=== PATIENT | male | born 1955 | race Two or more races ===

== ENCOUNTER 2019-04-16 22:38 | Inpatient (IN) | payer BC, OTHER ==
[~2019-04-16] VITALS: Ht 175.3 cm; Wt 86.1 kg
[2019-04-16] MEDS ORDERED: cloNIDine HCL 0.1 MG TAB ONE (22:51)
[2019-04-16] MEDS ORDERED: cloNIDine HCL 0.1 MG TAB PO ONE (23:00)
[2019-04-16 23:23] LABS: Basophils # (auto) 0 uL; Basophils % (auto) 0.2 % (0.0-2.0); Eosinophils # (auto) 0.1 uL; Eosinophils % (auto) 1.2 % (0.0-7.0); Hematocrit 45.1 % (41.0-53.0); Hemoglobin 15.1 g/dL (13.5-17.5); Lymphocytes % (auto) 10.4 % (10.0-50.0); Mean Corpuscular Hgb Conc. 33.5 g/dL (32.0-36.0); Mean Corpuscular Volume 89.7 fL (80.0-100.0); Monocytes % (auto) 10.1 % (0.0-12.0); Neutrophils # (auto) 7.8 uL; Neutrophils % (auto) 78.1 % (37.0-80.0); Platelet Count (auto) 201 10^3/uL (140-450); Red Blood Cells 5.03 10^6/uL (4.5-5.90); Red Cell Distribution Width 13.1 % (11.8-14.3)
[2019-04-16 23:43] LABS: Albumin 3.9 g/dL (3.4-5.0); Calcium 8.7 mg/dL (8.5-10.1); Potassium 3.8 mmol/L (3.5-5.1)
[2019-04-16 23:46] LABS: BUN/Creatinine Ratio 15.2
[2019-04-16 23:48] LABS: Bilirubin, Total 0.8 mg/dL (0.2-1.0); Total Protein 7.5 g/dL (6.4-8.2)
[2019-04-17] MEDS ORDERED: HYDROmorphone HCL 2 MG/ML VL IV ONE ×2 (01:30→05:45)
[2019-04-17] MEDS ORDERED: ONDANSETRON HCL 4 MG/2 ML VIAL IV ONE (01:30)
[2019-04-17 03:21] LABS: Urine Bacteria FEW /hpf (None Seen); Urine Blood 2+ /uL (Negative); Urine Hyaline Cast FEW /lpf (0 - 2); Urine Mucus FEW (None Seen); Urine Specific Gravity 1.032 (1.001-1.035); Urine WBC 3 /hpf (0 - 3)
[2019-04-17] MEDS ORDERED: SODIUM CHLORIDE 0.9% 1,000 ML IV ONE (06:30)
[2019-04-17] MEDS ORDERED: cloNIDine HCL 0.1 MG TAB PO PRN (07:45)
[2019-04-17] MEDS ORDERED: TAMSULOSIN HYDROCHLORIDE 0.4 MG CAP PO ONE (07:45)
[2019-04-17] MEDS ORDERED: SODIUM CHLORIDE 0.9% 500 ML IV ONE (07:45)
[2019-04-17] MEDS ORDERED: KETOROLAC TROMETH 30 MG/ML 1ML VIAL IV PRN (07:45)
[2019-04-17] MEDS ORDERED: ONDANSETRON HCL 4 MG/2 ML VIAL IV PRN (07:45)
[2019-04-17] MEDS ORDERED: HYDROcodone-ACET 5/325MG TAB PO PRN (07:45)
[2019-04-17] MEDS: SODIUM CHLORIDE 0.9% 1,000 ML IV SCH (08:39)
[2019-04-17] MEDS: cefTRIAXone 1GM/50ML D5W 50 ML IV SCH (08:44)
--- NOTE | 2019-04-17 10:56 | NUR ---
MS admit from ER ZOFAI LLOYD admitted to tele/MS after SBAR received. Patient oriented to Kylee Loza, primary RN, unit, room, bed, and unit policies regarding patient care and visiting hours. Patient weighed by bedscale and encouraged to call if they need something. All questions and concerns addressed, patient verbalized understanding. Note: PT IS AWAKE AND ALERT, PT IS COMPLAINING OF LEFT FLANK PAIN 10/10, WILL GIVE PAIN MEDICATION ORDERED.
[2019-04-17] MEDS: FAMOTIDINE 20 MG TAB PO SCH ×2 (11:01→22:23)
--- NOTE | 2019-04-17 11:20 | NUR ---
wound photo taken on right great toe, wound culture done and sent to laboratory.
[2019-04-17 11:28] VITALS: BP 131/77
[2019-04-17 11:31] LABS: INR 0.99 (0.9-1.15); Partial Thromboplastin Time 26.3 sec (23.64-32.05)
--- NOTE | 2019-04-17 12:30 | NUR ---
PT TRANSPORTED TO [facility] PATTERN[facility] VIA BED FOR NEPHROSTOMY TUBE PLACEMENT, PRE-OP CHECKLIST COMPLETED, PT STILL TO SIGN CONSENTS, IV ON LEFT AC PATENT AND FLUSHING.
[2019-04-17] MEDS ORDERED: LIDOCAINE 2%HCL (LOCAL ANESTH.) INJ 20ML MDV ONE (12:34)
[2019-04-17] MEDS ORDERED: fentaNYL CITRATE 100 MCG/2 ML VL ONE (12:39)
[2019-04-17] MEDS ORDERED: IOHEXOL 350 MG/ML 100ML IJ ONE (12:40)
[2019-04-17] MEDS ORDERED: MIDAZOLAM HCL 1MG/1ML-2 ML VIAL ONE (12:40)
--- NOTE | 2019-04-17 13:55 | NUR ---
RECEIVED REPORT FROM CHIOMA ALVAREZ IN [employer]ERIAL CONTROL SUPERVISOR.
--- NOTE | 2019-04-17 14:09 | NUR ---
RECEIVED PT FROM [employer] [facility] VIA BED S/P NEPHROSTOMY TUBE PLACEMENT, PT IS ALERT AND AWAKE, WILL CONTINUE TO MONITOR.
[2019-04-17 17:00] VITALS: BP 124/67
--- NOTE | 2019-04-17 19:00 | NUR ---
drainage output from nephrostomy tube 150mls dark red.
--- NOTE | 2019-04-17 19:20 | NUR ---
Opening shift note Assumed care of patient who is A&Ox4. Currently on RA with no s/s of SOB or distress. Denies pain at this time. Left nephrostomy tube present; dressing is CDI; draining bright red output to gravity. Patient is ambulatory without the use of assistive devices at baseline. Has not ambulated independently post procedure. Instructed to call for assistance with first ambulation; verbalizes understanding. POC discussed with patient and all questions answered. Bed is in low locked position with side rails up x2. Call light is within reach. Will continue care.
[2019-04-17 22:00] VITALS: BP 116/73
[2019-04-18] VITALS (7 sets, daily range): BP systolic 117–145; BP diastolic 52–96
[2019-04-18] MEDS: SODIUM CHLORIDE 0.9% 1,000 ML IV SCH ×3 (01:39→11:35)
[2019-04-18] MEDS: ACETAMINOPHEN 325 MG TAB PO PRN ×2 (01:43→09:12)
--- NOTE | 2019-04-18 04:37 | NUR ---
Nephrostomy tube drainage 225ml dark red drainage emptied from nephrostomy bag. Patient denies pain at this time.
[2019-04-18 05:45] LABS: Basophils # (auto) 0 uL; Basophils % (auto) 0.2 % (0.0-2.0); Eosinophils # (auto) 0.1 uL; Hematocrit 39.7 % (41.0-53.0); Hemoglobin 13.3 g/dL (13.5-17.5); Lymphocytes # (auto) 1.1 uL; Lymphocytes % (auto) 17.6 % (10.0-50.0); Mean Corpuscular Hemoglobin 30.2 pg (28.0-32.0); Mean Corpuscular Hgb Conc. 33.7 g/dL (32.0-36.0); Mean Corpuscular Volume 89.8 fL (80.0-100.0); Monocytes # (auto) 0.8 uL; Neutrophils # (auto) 4.3 uL; Neutrophils % (auto) 68.2 % (37.0-80.0); Nucleated Red Blood Cells % 0.1 %; Platelet Count (auto) 157 10^3/uL (140-450); Red Blood Cells 4.42 10^6/uL (4.5-5.90); Red Cell Distribution Width 13.2 % (11.8-14.3); White Blood Cell 6.3 10^3/uL (4.4-10.8)
[2019-04-18 06:09] LABS: Potassium 3.4 mmol/L (3.5-5.1)
[2019-04-18 06:14] LABS: BUN/Creatinine Ratio 14.8; Calcium 7.9 mg/dL (8.5-10.1)
--- NOTE | 2019-04-18 06:54 | NUR ---
nephrostomy tube drainage 50ml bright red drainage emptied from nephrostomy bag.
[2019-04-18] MEDS: FAMOTIDINE 20 MG TAB PO SCH ×2 (09:06→22:21)
[2019-04-18] MEDS: cefTRIAXone 1GM/50ML D5W 50 ML IV SCH (09:06)
--- NOTE | 2019-04-18 10:19 | NUR ---
PATIENT NEPHROSTOMY TUBE INSERTED ON 04/17/2019. PATENT AND DRAINING
[2019-04-18] MEDS ORDERED: LISI40TA PO (12:15)
[2019-04-18] MEDS ORDERED: HYDR25TA4 PO (12:15)
[2019-04-18] MEDS ORDERED: LEVO75TA6 PO (12:15)
[2019-04-18] MEDS ORDERED: CARI-277 PO (12:15)
[2019-04-18] MEDS ORDERED: ATEN100T PO (12:15)
[2019-04-18] MEDS ORDERED: TRAM50TA2 PO (12:15)
[2019-04-18] MEDS ORDERED: PANT40TA2 PO (12:15)
[2019-04-18] MEDS: traMADol HCL 50 MG TAB PO PRN ×2 (12:34→20:37)
[2019-04-18] MEDS: CARISOPRODOL 350 MG TAB PO SCH ×2 (14:35→22:21)
--- NOTE | 2019-04-18 19:10 | NUR ---
Opening shift note Assumed care of patient who is A&Ox4. Currently on RA with no s/s or SOB or distress. Reports 3/10 pain in back. Pain management options discussed with patient. Left nephrostomy tube in place and patent. 150ml of bright red drainage emptied from collection bag. NS infusing at 100ml/hr as ordered. POC discussed with patient who verbalizes understanding. Bed is in low locked position with side rails up x2. Call light is within reach. Will continue to monitor for changes PRN.
[2019-04-18] MEDS: TEMAZEPAM 15 MG CAP PO PRN (20:39)
[2019-04-18] MEDS: ATENOLOL 50 MG TAB PO SCH (22:21)
[2019-04-18] MEDS: LISINOPRIL 20 MG TAB PO SCH (22:22)
[2019-04-19] MEDS: SODIUM CHLORIDE 0.9% 1,000 ML IV SCH ×3 (01:49→17:18)
[2019-04-19 05:34] VITALS: BP 139/83
[2019-04-19] MEDS: LEVOTHYROXINE SODIUM 25 MCG TAB PO SCH (05:53)
[2019-04-19] MEDS: CARISOPRODOL 350 MG TAB PO SCH ×3 (05:53→21:42)
--- NOTE | 2019-04-19 07:30 | NUR ---
Opening Shift Note Assumed care of patient, awake, alert, and oriented. No S/S of distress/SOB or pain. Left sided nephrostomy tube draining sanguinous urine, dressing C/D/I. Bed in low/locked position, bed rails up x2. Instructed on POC and to call for assist PRN with call light within reach. Will continue to monitor for changes Q1hr and PRN.
[2019-04-19] MEDS: cefTRIAXone 1GM/50ML D5W 50 ML IV SCH (08:58)
[2019-04-19 09:00] VITALS: BP 122/76
[2019-04-19] MEDS: FAMOTIDINE 20 MG TAB PO SCH ×2 (09:00→21:43)
[2019-04-19] MEDS: ATENOLOL 50 MG TAB PO SCH ×2 (09:01→21:45)
[2019-04-19] MEDS: HCTZ 25 MG TAB PO SCH (09:01)
[2019-04-19] MEDS: LISINOPRIL 20 MG TAB PO SCH (09:02)
--- NOTE | 2019-04-19 09:05 | NUR ---
NEPHROSTOMY TUBE EMPTIED 375 ML SANGUINOUS FROM LEFT NEPHROSTOMY BAG. Addendum: 04/19/19 at 0907 by [place] DELA CRUZ RN RN SANGUINOUS URINE Addendum: 04/19/19 at 0908 by OH DELA CRUZ RN RN 175 ML
[2019-04-19] MEDS: PANTOPRAZOLE 40 MG TAB PO SCH (10:07)
--- NOTE | 2019-04-19 10:55 | NUR ---
MD ROUNDS DR Nithya DRAPER AT BEDSIDE DISCUSSING POC WITH PATIENT. ALL QUESTIONS/CONCERNS ANSWERED. NEW ORDERS RECEIVED/CARRIED OUT. WILL CONTINUE TO MONITOR
[2019-04-19] MEDS ORDERED: TAMSULOSIN HYDROCHLORIDE 0.4 MG CAP PO ONE (11:00)
[2019-04-19] MEDS: traMADol HCL 50 MG TAB PO PRN ×2 (12:00→22:22)
[2019-04-19 12:54] VITALS: BP 160/100
--- NOTE | 2019-04-19 12:54 | NUR ---
MICROBIOLOGY RECEIVED PHONE CALL RE: PATIENT RIGHT GREAT TOE POSITIVE MRSA
--- NOTE | 2019-04-19 13:00 | NUR ---
NEPHROSTOMY TUBE EMPTIED 175 ML SANGUINOUS MEDIUM PINK URINE FROM LEFT NEPHROSTOMY BAG.
--- NOTE | 2019-04-19 13:00 | NUR ---
MD ROUNDS DR MENDOZA, UROLOGIST AT BEDSIDE DISCUSSING POC WITH PATIENT AND FAMILY. ALL QUESTIONS/CONCERNS ANSWERED. WILL CONTINUE TO MONITOR
--- NOTE | 2019-04-19 13:10 | NUR ---
MD CALL CALLED DR Nithya DRAPER RE: PATIENT POSITIVE MRSA IN THE WOUND. NEW ORDERS RECEIVED/CARRIED OUT. WILL CONTINUE TO MONITOR
[2019-04-19] MEDS ORDERED: VANCOMYCIN PER PHARMACY 0 MG IV SCH (13:30)
[2019-04-19] MEDS: VANCOMYCIN 1GM/250ML 250 ML IV SCH (14:24)
--- NOTE | 2019-04-19 16:45 | NUR ---
IV insertion IV access obtained, via clean sterile technique by inserting 22gauge catheter at RFA after 2 attempts. IV secured properly. No trauma to site. Patient tolerated well. IV removal IV DC'd with clean sterile technique, catheter fully intact. Pressure dressing applied to site. Patient tolerated well.
[2019-04-19 17:00] VITALS: BP 152/98
--- NOTE | 2019-04-19 17:00 | NUR ---
NEPHROSTOMY TUBE EMPTIED 125 ML SANGUINOUS LIGHT PINK URINE FROM LEFT NEPHROSTOMY BAG.
--- NOTE | 2019-04-19 17:08 | NUR ---
PAGED PAGED DR MEZA PER COMMUNICATION ORDER RE: PATIENT NEPHROSTOMY TUBE DRAINAGE. AWAITING RETURN CALL
--- NOTE | 2019-04-19 17:10 | NUR ---
RADIOLOGY SPOKE TO RADIOLOGY RE: PATIENT'S NEPHROSTOMY TUBE DRAINAGE. RADIOLOGY STATED "HE'S NOT IN, YOU HAVE TO CALL BACK TOMORROW."
[2019-04-19] MEDS: TAMSULOSIN HYDROCHLORIDE 0.4 MG CAP PO SCH (17:18)
--- NOTE | 2019-04-19 19:30 | NUR ---
Opening Shift Assumed care of patient, awake and alert. No S/S of distress/SOB or pain. Insructed on POC and to callfor assist PRN, will continue to monitor for changes Q1hr and PRN. Fall and safety precautions in place. Call light within reach.
[2019-04-19] MEDS: TEMAZEPAM 15 MG CAP PO PRN (21:47)
[2019-04-20] MEDS: VANCOMYCIN 1GM/250ML 250 ML IV SCH ×2 (01:45→15:15)
[2019-04-20] MEDS: SODIUM CHLORIDE 0.9% 1,000 ML IV SCH ×2 (04:53→12:30)
[2019-04-20] MEDS: CARISOPRODOL 350 MG TAB PO SCH ×3 (05:16→22:04)
[2019-04-20] MEDS: LEVOTHYROXINE SODIUM 25 MCG TAB PO SCH (05:17)
[2019-04-20 05:51] VITALS: BP 143/91
[2019-04-20 06:25] LABS: Calcium 8.4 mg/dL (8.5-10.1); Potassium 3.1 mmol/L (3.5-5.1)
[2019-04-20 06:31] LABS: BUN/Creatinine Ratio 14.4
[2019-04-20] MEDS: traMADol HCL 50 MG TAB PO PRN ×3 (06:47→22:04)
[2019-04-20 09:00] VITALS: BP 149/92
[2019-04-20] MEDS: cefTRIAXone 1GM/50ML D5W 50 ML IV SCH (09:58)
[2019-04-20] MEDS: FAMOTIDINE 20 MG TAB PO SCH ×2 (10:01→22:04)
[2019-04-20] MEDS: LISINOPRIL 20 MG TAB PO SCH (10:01)
[2019-04-20] MEDS: ATENOLOL 50 MG TAB PO SCH ×2 (10:01→22:04)
[2019-04-20] MEDS: PANTOPRAZOLE 40 MG TAB PO SCH (10:02)
[2019-04-20] MEDS: HCTZ 25 MG TAB PO SCH (10:03)
--- NOTE | 2019-04-20 11:25 | NUR ---
RE: Jefferson drainage from nephrostomy tube Spoke with Dr. Devlin regarding jefferson drainage from nephrostomy tube 72 hours post op. Orders to continue to monitor and new orders for a CBC and CMP to monitor blood count and hgb. Orders noted and carried out
[2019-04-20] MEDS ORDERED: POTASSIUM CHL 20 Meq TABLET PO ONE (12:30)
[2019-04-20 12:58] LABS: Basophils # (auto) 0 uL; Basophils % (auto) 0.4 % (0.0-2.0); Eosinophils # (auto) 0.2 uL; Eosinophils % (auto) 4.1 % (0.0-7.0); Hematocrit 47.3 % (41.0-53.0); Hemoglobin 15.6 g/dL (13.5-17.5); Lymphocytes # (auto) 1.2 uL; Lymphocytes % (auto) 20.6 % (10.0-50.0); Mean Corpuscular Hemoglobin 30.3 pg (28.0-32.0); Mean Corpuscular Volume 91.7 fL (80.0-100.0); Monocytes # (auto) 0.6 uL; Monocytes % (auto) 9.7 % (0.0-12.0); Neutrophils # (auto) 3.8 uL; Neutrophils % (auto) 65.2 % (37.0-80.0); Nucleated Red Blood Cells % 0.1 %; Platelet Count (auto) 204 10^3/uL (140-450); Red Blood Cells 5.15 10^6/uL (4.5-5.90); Red Cell Distribution Width 12.9 % (11.8-14.3); White Blood Cell 5.8 10^3/uL (4.4-10.8)
[2019-04-20 13:09] VITALS: BP 154/91
[2019-04-20 13:10] LABS: Albumin 3.4 g/dL (3.4-5.0); BUN/Creatinine Ratio 16.1; Calcium 8.6 mg/dL (8.5-10.1); Potassium 3.6 mmol/L (3.5-5.1)
[2019-04-20 13:11] LABS: Bilirubin, Total 0.7 mg/dL (0.2-1.0); Total Protein 7.5 g/dL (6.4-8.2)
--- NOTE | 2019-04-20 15:04 | NUR ---
Nutrition Assessment Notes please see attached link for complete assessment Est. Needs BW 86 [id number] kcal (23-25 kcal/kgBW), 86-94 gms pro (1.0-1.1 gms/kgBW). Will continue to monitor pertinent labs and reassess nutrient need prn Addendum: 04/20/19 at [address] Amended: Links added.
[2019-04-20 17:01] VITALS: BP 153/100
[2019-04-20] MEDS: TAMSULOSIN HYDROCHLORIDE 0.4 MG CAP PO SCH (18:07)
--- NOTE | 2019-04-20 19:30 | NUR ---
Opening Shift Assumed care of patient, awake and alert. No S/S of distress/SOB or pain. Insructed on POC and to callfor assist PRN, will continue to monitor for changes Q1hr and PRN. Fall and safety precautions in place. Call light within reach. Per MD Eid's order, left nephrostomy tube flushed with 10ml of NS by day shift RN during handoff
--- NOTE | 2019-04-20 19:45 | NUR ---
IV insertion IV access obtained, via clean sterile technique by inserting 20 gauge catheter at RFA after 1 attempt. IV secured properly. No trauma to site. Patient tolerated well. IV removal IV DC'd with clean sterile technique, catheter fully intact. Pressure dressing applied to site. Patient tolerated well. NOTE: RFA 22g removed due to infiltration Addendum: 04/20/19 at 2233 by Ekaterina Romero RN RN New IV inserted into left wrist, not right forearm
[2019-04-20 22:00] VITALS: BP 139/92
[2019-04-20] MEDS: TEMAZEPAM 15 MG CAP PO PRN (22:04)
[2019-04-21 01:04] LABS: Basophils # (auto) 0 uL; Basophils % (auto) 0.5 % (0.0-2.0); Eosinophils # (auto) 0.3 uL; Eosinophils % (auto) 4.9 % (0.0-7.0); Hematocrit 42.3 % (41.0-53.0); Hemoglobin 14.5 g/dL (13.5-17.5); Lymphocytes # (auto) 1.2 uL; Lymphocytes % (auto) 21.4 % (10.0-50.0); Mean Corpuscular Hemoglobin 30.2 pg (28.0-32.0); Mean Corpuscular Hgb Conc. 34.3 g/dL (32.0-36.0); Mean Corpuscular Volume 88.1 fL (80.0-100.0); Monocytes # (auto) 0.5 uL; Monocytes % (auto) 9.9 % (0.0-12.0); Neutrophils # (auto) 3.4 uL; Neutrophils % (auto) 63.3 % (37.0-80.0); Platelet Count (auto) 216 10^3/uL (140-450); Red Blood Cells 4.81 10^6/uL (4.5-5.90); White Blood Cell 5.4 10^3/uL (4.4-10.8)
[2019-04-21 01:44] LABS: Potassium 3.4 mmol/L (3.5-5.1)
[2019-04-21] MEDS: SODIUM CHLORIDE 0.9% 1,000 ML IV SCH ×2 (01:44→16:26)
[2019-04-21 01:45] LABS: Calcium 8.3 mg/dL (8.5-10.1)
[2019-04-21] MEDS: VANCOMYCIN 1GM/250ML 250 ML IV SCH ×2 (01:54→13:46)
[2019-04-21] MEDS: CARISOPRODOL 350 MG TAB PO SCH ×3 (05:49→21:28)
[2019-04-21] MEDS: traMADol HCL 50 MG TAB PO PRN ×3 (05:50→21:29)
[2019-04-21] MEDS: LEVOTHYROXINE SODIUM 25 MCG TAB PO SCH (05:50)
[2019-04-21 06:00] VITALS: BP 146/85
--- NOTE | 2019-04-21 06:00 | NUR ---
NEPHROSTOMY Flushed left nephrostomy tube with 10ml of NS as per MD order. Patient tolerated well. Will continue to monitor
--- NOTE | 2019-04-21 07:07 | NUR ---
Opening Shift Note Assumed care of patient, awake and alert. No S/S of distress/SOB or pain. Instructed on POC and to call for assist PRN, will continue to monitor for changes Q1hr and PRN. Bed set in lowest locked position and call light is within reach.
[2019-04-21 08:16] VITALS: BP 150/101
[2019-04-21 09:01] VITALS: BP 150/101
[2019-04-21] MEDS: cefTRIAXone 1GM/50ML D5W 50 ML IV SCH (09:16)
[2019-04-21] MEDS: ATENOLOL 50 MG TAB PO SCH ×2 (09:17→21:30)
[2019-04-21] MEDS: FAMOTIDINE 20 MG TAB PO SCH ×2 (09:17→21:29)
[2019-04-21] MEDS: HCTZ 25 MG TAB PO SCH (09:18)
[2019-04-21] MEDS: LISINOPRIL 20 MG TAB PO SCH (09:19)
[2019-04-21] MEDS: PANTOPRAZOLE 40 MG TAB PO SCH (09:19)
[2019-04-21 12:37] VITALS: BP 151/108
--- NOTE | 2019-04-21 16:32 | NUR ---
Assessment Pt is a 63 yr old alert and oriented male. Pt lives in [facility] with his but was here for his job. Pt came in with a large kidney stone and is waiting for a machine to be available to blast the stone. Pt was in a lot of pain. Pt is ambulatory and functions independently in the home with his . Pt stated that he has his own vehicle and will drive himself back to [facility] after the procedure. No AD on file. No needs or concerns presently. Addendum: 04/21/19 at 1636 by ROSIO WIGGINS SS Amended: Links added.
[2019-04-21 16:44] VITALS: BP 142/93
[2019-04-21] MEDS: TAMSULOSIN HYDROCHLORIDE 0.4 MG CAP PO SCH (18:23)
--- NOTE | 2019-04-21 19:30 | NUR ---
Opening Shift Assumed care of patient, awake and alert. No S/S of distress/SOB or pain. Insructed on POC and to callfor assist PRN, will continue to monitor for changes Q1hr and PRN. Fall and safety precautions in place. Call light within reach. Per MD Eid's order, left nephrostomy tube flushed with 10ml of NS. Patient tolerated well, will continue to monitor
[2019-04-21] MEDS: TEMAZEPAM 15 MG CAP PO PRN (21:28)
--- NOTE | 2019-04-22 | NUR ---
ACTIVITY Witnessed patient ambulating out in halls with steady gait. No signs of distress noted during ambulation. Will continue to monitor
[2019-04-22] MEDS: VANCOMYCIN 1GM/250ML 250 ML IV SCH ×2 (01:50→13:47)
[2019-04-22 05:31] VITALS: BP 135/83
[2019-04-22] MEDS: LEVOTHYROXINE SODIUM 25 MCG TAB PO SCH (06:12)
[2019-04-22] MEDS: SODIUM CHLORIDE 0.9% 1,000 ML IV SCH ×2 (06:12→09:23)
[2019-04-22] MEDS: CARISOPRODOL 350 MG TAB PO SCH ×3 (06:12→21:50)
[2019-04-22] MEDS: traMADol HCL 50 MG TAB PO PRN ×3 (06:12→21:55)
--- NOTE | 2019-04-22 07:30 | NUR ---
RECEIVED REPORT FROM NIGHT NURSE. PATIENT RESTING IN BED, NO DISTRESS NOTED. WILL CONTINUE TO MONITOR.
[2019-04-22 08:00] VITALS: BP 138/65
[2019-04-22 09:00] VITALS: BP 147/96
[2019-04-22] MEDS: cefTRIAXone 1GM/50ML D5W 50 ML IV SCH (09:12)
[2019-04-22] MEDS: FAMOTIDINE 20 MG TAB PO SCH ×2 (09:42→21:50)
[2019-04-22] MEDS: ATENOLOL 50 MG TAB PO SCH ×2 (09:44→21:51)
[2019-04-22] MEDS: PANTOPRAZOLE 40 MG TAB PO SCH (09:45)
[2019-04-22] MEDS: HCTZ 25 MG TAB PO SCH (09:45)
[2019-04-22] MEDS: LISINOPRIL 20 MG TAB PO SCH (09:45)
[2019-04-22 13:00] VITALS: BP 133/84
[2019-04-22 17:00] VITALS: BP 154/85
[2019-04-22] MEDS: TAMSULOSIN HYDROCHLORIDE 0.4 MG CAP PO SCH (17:48)
--- NOTE | 2019-04-22 19:15 | NUR ---
ASSUMED CARE, PT. AWAKE, NO C/O PAIN, WITH NEPROSTOMY IN PLACE, DRAINING WELL, ADVISED PT. NPO AFTER MN, FOR SURGERY IN AM, NOT IN DISTRESS.
[2019-04-22 21:47] VITALS: BP 138/77
[2019-04-23] MEDS: VANCOMYCIN 1GM/250ML 250 ML IV SCH ×2 (01:52→14:55)
[2019-04-23 05:31] VITALS: BP 145/87
[2019-04-23] MEDS: CARISOPRODOL 350 MG TAB PO SCH ×3 (05:47→22:33)
[2019-04-23] MEDS: traMADol HCL 50 MG TAB PO PRN ×3 (05:48→22:33)
[2019-04-23] MEDS: LEVOTHYROXINE SODIUM 25 MCG TAB PO SCH (06:02)
--- NOTE | 2019-04-23 06:40 | NUR ---
pt. brought down to pre-op in stable condition.
[2019-04-23] MEDS: SODIUM CHLORIDE 0.9% 1,000 ML IV SCH ×2 (07:25→20:30)
--- NOTE | 2019-04-23 07:30 | NUR ---
OPENING NOTE PT IS CURRENTLY DOWN FOR PROCEDURE, REPORT ON PATIENT RECEIVED FROM NIGHT NURSE
[2019-04-23 08:00] VITALS: BP 139/88
[2019-04-23] MEDS ORDERED: SUCCINYLCHOLINE CHLORIDE 20 MG/ML 10ML VIAL IV ONE (08:05)
[2019-04-23] MEDS ORDERED: LIDOCAINE 1% HCL (LOCAL ANESTH.) INJ 20ML MDV ONE (08:05)
[2019-04-23] MEDS ORDERED: MIDAZOLAM HCL 1MG/1ML-2 ML VIAL ONE (08:09)
[2019-04-23] MEDS ORDERED: METOCLOPRAMIDE HCL 5MG/ml INJ 2ml VIAL ONE (08:09)
[2019-04-23] MEDS ORDERED: PROPOFOL 10 MG/ML 20 ML IV ONE (08:13)
[2019-04-23] MEDS ORDERED: LIDOCAINE HCL 2% TOP JELLY 5ML TOP ONE (08:13)
[2019-04-23] MEDS ORDERED: fentaNYL CITRATE 100 MCG/2 ML VL ONE (08:20)
[2019-04-23] MEDS ORDERED: HYDROmorphone HCL 2 MG/ML VL IV PRN ×2 (08:30)
[2019-04-23] MEDS ORDERED: ONDANSETRON HCL 4 MG/2 ML VIAL IV PRN (08:30)
[2019-04-23] MEDS ORDERED: NALOXONE HCL 0.4 MG/ML VIAL IV PRN (08:30)
[2019-04-23] MEDS ORDERED: IOHEXOL 300 MG/ML 100ML BOTTLE IJ ONE (08:31)
[2019-04-23] MEDS ORDERED: IOHEXOL 180 MG/ML 20ML VIAL IJ ONE (08:31)
[2019-04-23] MEDS ORDERED: ePHEDrine SULFATE 50 MG/ML AMP ONE (08:37)
[2019-04-23] MEDS ORDERED: SODIUM CHLORIDE LOCK 10 ML ONE (08:37)
--- NOTE | 2019-04-23 10:34 | NUR ---
PATIENT WASN'T AVAILABLE FOR VITALS
[2019-04-23] MEDS: cefTRIAXone 1GM/50ML D5W 50 ML IV SCH (10:55)
[2019-04-23] MEDS: ATENOLOL 50 MG TAB PO SCH ×2 (10:56→21:44)
[2019-04-23] MEDS: PANTOPRAZOLE 40 MG TAB PO SCH (10:56)
[2019-04-23] MEDS: FAMOTIDINE 20 MG TAB PO SCH ×2 (10:57→21:44)
[2019-04-23] MEDS: LISINOPRIL 20 MG TAB PO SCH (10:57)
[2019-04-23] MEDS: HCTZ 25 MG TAB PO SCH (10:58)
--- NOTE | 2019-04-23 12:36 | NUR ---
Patient assessment done at 1030 as patient was in procedure Addendum: 04/23/19 at 1237 by PRICE SHER RN RN Amended: Links added.
[2019-04-23 13:00] VITALS: BP 138/91
--- NOTE | 2019-04-23 14:07 | NUR ---
Nutrition Follow-up Notes Wt.: 87.1 kg Pt was off the floor for lithotripsy when rounded this am. per pt recrds pt s.p nephrostomy tube. pt is currently on cardiac diet with adequate PO of 100% x 4 per RN doc Est. Needs BW 86 [id number] kcal (23-25 kcal/kgBW), 86-94 gms pro (1.0-1.1 gms/kgBW). Will continue to monitor pertinent labs and reassess nutrient need prn Labs: GLU 109 H, CA 8.3 L. Skin: Jake scale 19, low risk skin intact per RN doc GI: Pt's had 1 BM today per training and documentation specialist. PES: Altered nutrition related lab values r/t current/chronic medical condition aeb hypocalcemia Will continue to monitor PO intake, skin status, pertinent labs and weight trend. F/u in 3-5 days. Rec.: 1.) Continue current plan of care.
[2019-04-23 17:00] VITALS: BP 151/98
[2019-04-23] MEDS: TAMSULOSIN HYDROCHLORIDE 0.4 MG CAP PO SCH (18:30)
--- NOTE | 2019-04-23 19:05 | NUR ---
ASSUMED CARE, PT. AWAKE, NO C/O PAIN, NO SOB.
[2019-04-23 22:00] VITALS: BP 155/95
[2019-04-24] MEDS: VANCOMYCIN 1GM/250ML 250 ML IV SCH ×2 (01:46→14:37)
[2019-04-24 05:00] VITALS: BP 144/77
[2019-04-24] MEDS: CARISOPRODOL 350 MG TAB PO SCH ×2 (06:09→14:37)
[2019-04-24] MEDS: traMADol HCL 50 MG TAB PO PRN ×2 (06:10→14:37)
[2019-04-24] MEDS: LEVOTHYROXINE SODIUM 25 MCG TAB PO SCH (06:10)
[2019-04-24 06:25] LABS: Basophils # (auto) 0 uL; Basophils % (auto) 0.4 % (0.0-2.0); Eosinophils # (auto) 0.3 uL; Eosinophils % (auto) 3.7 % (0.0-7.0); Hematocrit 41.9 % (41.0-53.0); Hemoglobin 14.3 g/dL (13.5-17.5); Lymphocytes # (auto) 1.2 uL; Lymphocytes % (auto) 16.7 % (10.0-50.0); Mean Corpuscular Hgb Conc. 34.1 g/dL (32.0-36.0); Monocytes # (auto) 0.7 uL; Neutrophils # (auto) 4.8 uL; Neutrophils % (auto) 69.2 % (37.0-80.0); Platelet Count (auto) 212 10^3/uL (140-450); Red Blood Cells 4.76 10^6/uL (4.5-5.90); Red Cell Distribution Width 12.6 % (11.8-14.3); White Blood Cell 6.9 10^3/uL (4.4-10.8)
[2019-04-24 06:34] LABS: Calcium 8.2 mg/dL (8.5-10.1); Potassium 3.4 mmol/L (3.5-5.1)
--- NOTE | 2019-04-24 07:20 | NUR ---
Opening shift note Assumed care of patient from warehouse shift supervisor nurse. Patient is alert and oriented x4. no signs of distress noted. Patient informed of plan of care and verbalizes understanding. Bed in lowest position, side rails upx2, call light in reach. Will continue to monitor
[2019-04-24 09:00] VITALS: BP 149/82
[2019-04-24] MEDS: cefTRIAXone 1GM/50ML D5W 50 ML IV SCH (09:04)
[2019-04-24] MEDS: SODIUM CHLORIDE 0.9% 1,000 ML IV SCH (09:50)
[2019-04-24] MEDS: PANTOPRAZOLE 40 MG TAB PO SCH (09:57)
[2019-04-24] MEDS: LISINOPRIL 20 MG TAB PO SCH (09:58)
[2019-04-24] MEDS: ATENOLOL 50 MG TAB PO SCH (09:59)
[2019-04-24] MEDS: HCTZ 25 MG TAB PO SCH (09:59)
[2019-04-24] MEDS: FAMOTIDINE 20 MG TAB PO SCH (09:59)
[2019-04-24] MEDS ORDERED: IOHEXOL 300 MG/ML 100ML BOTTLE IJ ONE (12:26)
[2019-04-24 13:00] VITALS: BP 152/94
--- NOTE | 2019-04-24 15:50 | NUR ---
PER DR KAY REQUEST CALL HIM WHEN NEPHROSTOGRAM RESULTS ARE IN. AT THIS TIME NO UPDATE ON RESULTS.
[2019-04-24 17:00] VITALS: BP 159/100
--- NOTE | 2019-04-24 17:00 | NUR ---
per Dr Araujo patient cleared for discharged notified Dr Ty and patient can be discharged. Patient also provided nephrostomy bag in case pain reoccurs. Dr Evans and this nirse educated patient on the use of bag and when to replace it.
[2019-04-24] MEDS: TAMSULOSIN HYDROCHLORIDE 0.4 MG CAP PO SCH (18:00)
--- NOTE | 2019-04-24 18:22 | NUR ---
Discharge instructions given as ordered. Encourage to follow up with PMD as instructed. All questions and concerns addressed. Patient verbalized understanding. Medication reconciliation form completed and copy given to patient. No Home medications held in Pharmacy and none to be returned to patient, and no needed vaccines given. IV removed with catheter intact, pressure dressing applied. Patient ambulated to vehicle with all personal belongings, accompanied by staff and family member. No distress noted at time of departure.
== END 2019-04-24 19:12 | disposition home or self-care (01) | DRG 690 ==
LOC: ER 22:41 → OVERFLOW 22:42 → WEST WING 04-17 10:54
PROVIDERS: ADMIT Nurse Practitioner; ATTEND Internal Medicine
PROC: 0T9130Z Drainage of Left Kidney with Drainage Device, Percutaneous Approach (ICD-10-PCS; 2019-04-17)
PROC: BT1F1ZZ Fluoroscopy of Left Kidney, Ureter and Bladder using Low Osmolar Contrast (ICD-10-PCS; 2019-04-17)
PROC: 0TF7XZZ Fragmentation in Left Ureter, External Approach (ICD-10-PCS; principal; 2019-04-23 07:55)
DX: N13.6 Pyonephrosis (principal); K51.90 Ulcerative colitis, unspecified, without complications; B95.62 Methicillin resistant Staphylococcus aureus infection as the cause of diseases classified elsewhere; B96.4 Proteus (mirabilis) (morganii) as the cause of diseases classified elsewhere; I10 Essential (primary) hypertension; L08.9 Local infection of the skin and subcutaneous tissue, unspecified; Z80.8 Family history of malignant neoplasm of other organs or systems; Z82.49 Family history of ischemic heart disease and other diseases of the circulatory system; Z90.49 Acquired absence of other specified parts of digestive tract; Z87.442 Personal history of urinary calculi
CPT/HCPCS: 36415; 71045; 74018; 74176; 76942; 80048; 80053; 80202; 81001; 83880; 85025; 85610; 85730; 87077; 87086; 87088; 87186; 87205; 96361; 96374; 96375; 96376; 99152; C1729; G0378; J0330; J0696; J1885; J2001; J2250; J2405; J2704; Q9965